=== PATIENT | male | born 1930 | race Caucasian/White ===

== ENCOUNTER 2018-11-15 10:17 | Inpatient (IN) | payer MEDICARE, OTHER ==
[2018-11-15] MEDS ORDERED: Metoprolol Tartrate 5 MG/5 ML VIAL ONE (10:43)
[2018-11-15 10:49] LABS: #Basophils 0.1 thou/uL (0.0-0.2); #Eosinphils 0.2 thou/uL (0.0-0.7); #Lymphocytes 2.3 thou/uL (1.20-3.40); #Monocytes 1.1 thou/uL (0.11-0.59); %Basophils 0.4 % (0.0-1.0); %Lymphocytes 14.5 % (21.0-51.0); %Monocytes 6.9 % (0.0-10.0); %Neutrophils 77.2 % (42.0-75.0); Mean Corpuscular HGB CONC 32.7 g/dL (32.0-36.0); Mean Corpuscular Hemoglobin 31.1 pg (27.0-31.0); Mean Corpuscular Volume 95.4 fL (78.0-98.0); Mean Platelet Volume 7.5 fL (7.4-10.4); Platelet Count 234 thou/uL (130-400); RBC Distribution Width 12.8 % (11.5-14.5); Red Blood Cell (RBC) Count 3.85 mill/uL (4.70-6.10); White Blood Cell (WBC) Count 15.5 thou/uL (4.8-10.8)
[2018-11-15 11:17] LABS: ALT (SGPT) 14 U/L (8-55); AST (SGOT) 23 U/L (5-34); Albumin 3.5 g/dL (3.4-4.8); Alkaline Phosphatase 54 U/L (40-110); Anion Gap 11 mmol/L (10-20); BUN (Urea Nitrogen) 36 mg/dL (8.4-25.7); Bilirubin, Total 0.7 mg/dL (0.2-1.2); Calc. Creatinine Clearance 0 mL/min (70-130); Calcium 9.2 mg/dL (7.8-10.44); Carbon Dioxide 24 mmol/L (23-31); Chloride 101 mmol/L (98-107); Estimated GFR-MDRD 72; Globulin 3.8 g/dL (2.4-3.5); Glucose 80 mg/dL (83-110); Potassium 4.4 mmol/L (3.5-5.1); Protein, Total 7.3 g/dL (5.8-8.1); Sodium 132 mmol/L (136-145)
--- NOTE | 2018-11-15 11:23 | CT ---
CT OF THE BRAIN WITHOUT CONTRAST: Date: 11/15/18 COMPARISON: 06/20/15. HISTORY: Fall out of wheelchair with head trauma. TECHNIQUE: Multiple contiguous axial images were obtained in a CT of the brain without contrast. FINDINGS: There are diffuse scattered hypodensities in the subcortical and periventricular white matter, likely secondary to small vessel ischemic disease. No large confluent infarction is seen. There is no evide nce of hydrocephalus, intracranial hemorrhage, or extra-axial fluid collection. The calvarium and overlying soft tissues are unremarkable. The visualized paranasal sinuses and masto id air cells are well aerated. IMPRESSION: No evidence of acute intracranial abnormality. POS: CET
--- NOTE | 2018-11-15 11:24 | RAD ---
SINGLE VIEW CHEST: Date: 11/15/18 COMPARISON: 07/29/13. HISTORY: Fell out of wheelchair with chest trauma. FINDINGS: Single view of the chest shows normal sized cardiomediastinal silhouette with atherosclerotic calcifi cations in the aorta. There is no evidence of consolidation, mass, or pleural effusion. Degenerative changes are seen in the spine. IMPRESSION: No evidence of acute cardiopulmonary disease. POS: CET
--- NOTE | 2018-11-15 11:37 | CT ---
CT OF THE CERVICAL SPINE WITHOUT CONTRAST: Date: 11/15/18 COMPARISON: None. HISTORY: Fell out of wheelchair with head trauma and neck pain. TECHNIQUE: Multiple contiguous axial images were obtained in a CT of the cervical spine without contrast. Sagitt al and coronal reformats were performed. FINDINGS: Moderate degenerative changes are seen in the cervical spine. The vertebral bodies demonstrate normal height without acute fracture or subluxation. No prevertebral soft tissue swelling is seen. The posterior facets are well aligned. Normal alignment of the skull base with the cervical spine is seen. IMPRESSION: Degenerative changes of the cervical spine without acute osseous abnormality. POS: CET
[2018-11-15 11:57] LABS: Bilirubin Negative (Negative); Blood, Urine 2+ (Negative); Clarity Extra Turbid (Clear); Glucose, Urine (Dipstick) Normal (Negative); Leukocyte 500 Leu/uL (Negative); Nitrite Negative (Negative); Protein, Urine (Dipstick) 200 mg/dL (Neg-Trace); RBC/HPF Greater than 50 HPF (0-3); Squamous Epithelial None Seen HPF (0-3); Urobilinogen Normal mg/dL (Less than 2); WBC/HPF Greater than 50 HPF (0-3)
[2018-11-15 12:11] LABS: Bacteria/HPF 4+ HPF (None Seen)
--- NOTE | 2018-11-15 12:12 | PDOC.FPRHP ---
- History of Present Illness Chief Complaint: fall out of chair History of Present Illness: Pt was brought to the ED to be evaluated from [facility]/rehab after falling out of his chair. [facility] staff states he has been at his baseline mentation and function lately, with no acute concerns. Pt does not have any complaints. Does not remember fall occurring this morning. Pt's HR in the ED was 120-130's. EKG showed A. fib with RVR. He was given 5 mg Metoprolol Tartrate IV push, and his HR is not 95-100. BP readings 100-120/60-80. WBC 15.5 UA: leuk est 500, >50 WBC, >50 RBC, bacteria 4+ BNP 514.9 Trop 0.056 - Allergies/Adverse Reactions Allergies Allergy/AdvReac Type Severity Reaction Status Date / Time iodine Allergy Verified 05/03/15 13:34 - Home Medications Medication Instructions Recorded Confirmed Type Aspirin [Aspirin EC] 81 mg PO DAILY 07/29/13 11/15/18 History BuPROPion SR [Wellbutrin SR] 300 mg PO DAILY 07/29/13 11/15/18 History Fluticasone Propionate 2 spray EA NARE QAM 07/29/13 11/15/18 History [Fluticasone Propionate Nasal [place]] Multivitamin/Iron/Folic Acid 1 tab PO DAILY 07/29/13 11/15/18 History [Cerovite Advanced Form] Tamsulosin HCl [Flomax] 0.4 mg PO HS 07/29/13 11/15/18 History Loratadine [Claritin] 10 mg PO DAILY 05/03/15 11/15/18 History Potassium Chloride 7.5 ml PO DAILY 05/03/15 11/15/18 History Acetaminophen [Tylenol] 650 mg PO Q6H PRN 11/15/18 11/15/18 History Docusate [Colace] 100 mg PO HS 11/15/18 11/15/18 History Furosemide 20 mg PO DAILY 11/15/18 11/15/18 History Guaifenesin DM 100-10 [Robitussin 10 ml PO Q4H PRN 11/15/18 11/15/18 History DM] Losartan Potassium [Cozaar] 25 mg PO HS 11/15/18 11/15/18 History Megestrol Acetate 10 ml PO BID 11/15/18 11/15/18 History Naproxen Sodium [Aleve] 440 mg PO Q12HR PRN 11/15/18 11/15/18 History Sertraline HCl 25 mg PO DAILY 11/15/18 11/15/18 History Sodium Chloride 1 gm PO DAILY 11/15/18 11/15/18 History guaiFENesin [Guaifenesin] 400 mg PO Q12HR 11/15/18 11/15/18 History - History PMHx: HTN, HLD, DM II, Hx of falls, Chronic dementia, squamous cell carcinoma, generalized weakness with muscle atrophy, BPH, Insomnia, sacral pressure ulcer, 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 Social: Lives a [facility]. Only eats chocolate milk and ensure. - Review of Systems ROS unobtainable: due to mental status (Pt does not admit to any pain, problem or remember his fall this morning.) - Vital signs BP: 127/85 HR: 96 RR: 17 Tmax: 98.8 Pox: 98% on RA Wt: 83.37 kg - Physical Exam Constitutional: NAD, well developed -Constitutional: awake, oriented to person. At baseline mentation per [facility] staff. HEENT: PERRLA, EOMI, conjunctiva clear, no scleral icterus, grossly normal vision, MMM -HEENT: poor dentition Neck: supple, FROM, trachea midline, no LAD, no JVD Heart: pulses present, no edema -Heart: irregularly irregular rhythm, rate 96. 3/6 Holosystolic murmur auscultated loudest over the mitral valve. Lungs: no respiratory distress, no wheezing, no retractions -Lungs: Rhonchi present Bibasilar Crackles/rales Abdomen: soft, bowel sounds present, no masses/distention -Abdomen: RUQ abdominal tenderness. No guarding or rebound. Musculoskeletal: normal structure, normal tone Neurological: no focal deficit, CN II-XII intact, normal sensation Skin: no rash/lesions, good turgor, capillary refill <2 seconds, no jaundice Heme/Lymphatic: no unusual bruising or bleeding, no purpura, no petechia FMR H&P: Results - Labs Result Diagrams: 11/15/18 10:37 11/15/18 10:37 Lab results: WBC 15.5 thou/uL (4.8-10.8) H 11/15/18 10:37 Hgb 12.0 g/dL (14.0-18.0) L 11/15/18 10:37 Hct 36.7 % (42.0-52.0) L 11/15/18 10:37 MCV 95.4 fL (78.0-98.0) 11/15/18 10:37 Plt Count 234 thou/uL (130-400) 11/15/18 10:37 Neutrophils % 77.2 % (42.0-75.0) H 11/15/18 10:37 Sodium 132 mmol/L (136-145) L 11/15/18 10:37 Potassium 4.4 mmol/L (3.5-5.1) 11/15/18 10:37 Chloride 101 mmol/L (98-107) 11/15/18 10:37 Carbon Dioxide 24 mmol/L (23-31) 11/15/18 10:37 BUN 36 mg/dL (8.4-25.7) H 11/15/18 10:37 Creatinine 0.98 mg/dL (0.7-1.3) 11/15/18 10:37 Glucose 80 mg/dL (83-110) L 11/15/18 10:37 Calcium 9.2 mg/dL (7.8-10.44) 11/15/18 10:37 Total Bilirubin 0.7 mg/dL (0.2-1.2) 11/15/18 10:37 AST 23 U/L (5-34) 11/15/18 10:37 ALT 14 U/L (8-55) 11/15/18 10:37 Alkaline Phosphatase 54 U/L (40-110) 11/15/18 10:37 CK-MB (CK-2) 5.0 ng/mL (0-6.6) 11/15/18 10:37 B-Natriuretic Peptide 514.9 pg/mL (0-100) H 11/15/18 10:37 Serum Total Protein 7.3 g/dL (5.8-8.1) 11/15/18 10:37 Albumin 3.5 g/dL (3.4-4.8) 11/15/18 10:37 Urine Ketones Negative mg/dL (Negative) 11/15/18 11:26 Urine Blood 2+ (Negative) A 11/15/18 11:26 Urine Nitrite Negative (Negative) 11/15/18 11:26 Ur Leukocyte Esterase 500 Kenny/uL (Negative) A 11/15/18 11:26 Urine RBC Greater than 50 HPF (0-3) A 11/15/18 11:26 Urine WBC Greater than 50 HPF (0-3) A 11/15/18 11:26 Ur Squamous Epith Cells None Seen HPF (0-3) 11/15/18 11:26 Urine Bacteria 4+ HPF (None Seen) A 11/15/18 11:26 - EKG Interpretation EKG: A fib with RVR. FMR H&P: A/P - Problem List (1) Atrial fibrillation with RVR Current Visit: Yes Status: Acute Code(s): I48.91 - UNSPECIFIED ATRIAL FIBRILLATION (2) UTI (urinary tract infection) Current Visit: Yes Status: Acute (3) CAD (coronary artery disease) Current Visit: Yes Status: Acute Code(s): I25.10 - ATHSCL HEART DISEASE OF [place] CORONARY ARTERY W/O ANG PCTRS (4) HTN (hypertension) Current Visit: Yes Status: Acute Code(s): I10 - ESSENTIAL (PRIMARY) HYPERTENSION Qualifiers: Hypertension type: essential hypertension Qualified Code(s): I10 - Essential (primary) hypertension (5) HLD (hyperlipidemia) Current Visit: Yes Status: Acute Code(s): E78.5 - HYPERLIPIDEMIA, UNSPECIFIED (6) BPH (benign prostatic hyperplasia) Current Visit: Yes Status: Acute Code(s): N40.0 - BENIGN PROSTATIC HYPERPLASIA WITHOUT LOWER URINRY TRACT SYMP (7) History of CVA (cerebrovascular accident) Current Visit: Yes Status: Acute Code(s): Z86.73 - PRSNL HX OF TIA (TIA), AND CEREB INFRC W/O RESID DEFICITS - Plan 88 y/o male with a pmhx of CAD, squamous cell carcinoma, HTN, HLD, Dementia, and CVA, presents to the ED after falling out of his wheelchair this morning. He was found to be in new onset A. fib with RVR. UA suggestive of UTI. 1. New Onset A. fib with RVR - Called [facility]/rehab in [place], [place], where pt is resident. They reported the patient has never been diagnosed with A. fib before. - HR originally 120's. Pt given lopressor in the ED. HR responded and not in 95 - 100 range. - EKG: A fib with RVR, rate 122. no ST elevations or depression. - Trops 0.056-> 0.052, will trend - BNP 514.9 - Ordered Echo. - KRISTIN-VASCs score: 7 - HAS-BLED Score: 3 - Pt on ASA 81 mg daily, consider anticoagulation upon discharge. - Started Metoprolol Tartrate at 25 mg BID, consider switching to succinate if pt tolerates well. - TSH 0.7 - Mag and Phos normal 2. UTI - UA evidence of UTI: Turbid, Blood 2+, 500 leuk est, RBC >50, WBC >50, Bact 4+ - Procal: 0.04 - Start Rocephin 1 G Q24H 3. RUQ abdominal Tenderness on Exam - RUQ abd US ordered - WBC 15.5 4. Leukocytosis - WBC 15.5 - Ordered Procal 5. Fall from chair - CT head and CT c-spine negative 6. Elevated BNP - Ordered Echo. Patient may be in volume overload from suspected CHF. - Elevated Trops most likely secondary to a fib with demand ischemia. - CXR: no acute cardiopulmonray process. - Gave 1 dose Lasix 20 mg IV. Monitor fluid status - Continue home lasix dose 20 mg PO daily. 7. Elevated Troponins - Most likely elevated 2/2 A. Fib from demand ischemia - Will trend 8. Fall from Chair - scalp abrasions - CT head neg - CT c-spine neg 9. Hx of Dementia - Pt at baseline mentation of oriented to person and place. Knew he was in the hospital, but not which one. - PT only eats chocolate milk and ensure. 10. Hx of CAD - continue ASA 11. Hx of Essential HTN - hold losartan, as pt has been hypotensive 12. Hx of BPH - Continue tamsulosin 13. Hx of MDD - Continue buproprion, and zoloft 14. DM II - not on any medications, diet controlled. Code Status: DNR, confirmed with [facility] Diet: HH, CC DVT ppx: lovenox and SCD's Dispo: admit to Tele inpatient for evaluation and treatment of new onset A fib with RVR, and UTI. FMR H&P: Upper Level - Pertinent history 88 y/o M PMHx dementia, HTN, HLD, CVA, CAD presents from [facility] because he fell out of his chair. In the ED he was found to have A-fib with RVR with rate in 130s. This resolved after 5mg metoprolol and 500mL NS. He reports he has been urinating more frequently. AOx1, so unable to obtain much more history. - Pertinent findings Vitals: BP 115/73, HR 97, RR 18, Temp 98.7, O2 sat 100% on RA PE: Gen - alert, awake, oriented to person only HEENT - MMM, poor dentition CV - irregularly irregular, 3/6 systolic murmur Resp - Poor effort, but CTAB Abd - soft, NTTP Ext - no edema or cyanosis Labs: Torp 0.056, WBC 15.5 CXR - no acute process, CT brain - no acute process, CT neck - no acute process - Plan Date/Time: 11/15/18 1212 I, Katerina Aldana MD, PGY-3, have evaluated this patient and agree with findings/ plan as outlined by recruiting internship resident. Pertinent changes/additions are listed here. 1. A-fib with RVR New onset A-fib. Initial trop indeterminate. Responded to 5mg metoprolol. CHADS- vasc 7, HAS-BLED 3 -Admit to telemetry -Metoprolol -Trend troponins -Echo -TSH, Mag, Phos -Will discuss anticoagulation risks and benefits with medical decision maker 2. Acute Cystitis Pt with leukocytosis and UA consistent with UTI -Rocephin -Urine culture 3. Leukocytosis Could be attributed to cystitis, but pt also mentioned RUQ pain to Dr. Hoskins -RUQ US -Trend -Procalcitonin -Blood culture -Rocephin, broaden if becomes indicated 4. Fall CT head and neck normal -Fall precautions Chronic problems per recruiting internship note Dispo: Admit to tele LOS: likely 2 days Diet: consult speech, ensure TID Addendum - Attending - Attending Attestation Date/Time: 11/15/18 1600 I personally evaluated the patient and discussed the management with Dr. Hoskins. I agree with the History, Examination, Assessment and Plan documented above with any addition or exceptions noted below. Abdomen only mildly tender in the epigastric region and RUQ. No rebound tenderness or guarding to suggest peritonitis. Lung bases with inspiratory rales. Will add a dose of lasix. Consistent with heart failure picture. Has known swallow issues. has had two prior swallow studies that recommend thickened liquid. Diet to be modified.
[2018-11-15 14:10] VITALS: BMI 27.9
[2018-11-15 14:13] LABS: Troponin I 0.052 ng/mL (< 0.028)
[2018-11-15 14:25] LABS: Phosphorus 3.3 mg/dL (2.3-4.7)
[2018-11-15] MEDS ORDERED: Naproxen 500 MG TAB PO PRN (15:18)
[2018-11-15] MEDS ORDERED: Acetaminophen 325 MG TAB PO PRN (15:18)
[2018-11-15] MEDS ORDERED: guaiFENesin 200 MG TAB PO PRN (15:18)
--- NOTE | 2018-11-15 15:27 | ULT ---
Abdominal Ultrasound: Multiple grayscale images of right upper quadrant obtained according to protocol. INDICATION: Pain FINDINGS: Liver: Normal Gallbladder: There is cholelithiasis, and gallbladder sludge Gallbladder wall: Gallbladder wall is borderline at 3 mm in thickness.. Mena's Sign: Negative Common bile duct is normal. Ascites: None Spleen: Obscured from view limiting assessment Pancreas: Partially obscured by bowel content, limiting assessment. Kidneys: Left kidney is obscured from view limiting assessment. Right kidney reveals no hydronephrosi s. Aorta/IVC: No acute process. IMPRESSION: Cholelithiasis and gallbladder sludge. Borderline-sized gallbladder wall. Recommend clinical correlat ion to exclude evidence of cholecystitis.
[2018-11-15] MEDS ORDERED: Lactated Ringer's 1,000 ML IV SCH (16:00)
[2018-11-15] MEDS: cefTRIAXone\\ROCEPHIN 1 GM in Sodium Chloride 0.9% 100 ML IVPB SCH (16:45)
[2018-11-15] MEDS: Furosemide 20 MG/2 ML VIAL SLOW IVP SCH ×2 (16:45→19:32)
[2018-11-15 16:53] LABS: Hemoglobin A1c 5.1 % (4.0-6.0)
[2018-11-15 17:10] LABS: Troponin I 0.064 ng/mL (< 0.028)
[2018-11-15] MEDS: Metoprolol Tartrate 25 MG TAB PO SCH (21:10)
[2018-11-15] MEDS: Tamsulosin HCl 0.4 MG CAP PO SCH (21:10)
[2018-11-15] MEDS: Bupropion 150 MG SR TAB PO SCH (21:10)
[2018-11-15] MEDS: Megestrol Acetate 800 MG/20 ML UDCUP PO SCH (21:11)
[2018-11-15] MEDS: Docusate 100 MG CAP PO SCH (21:11)
[2018-11-16] MEDS ORDERED: Metoprolol Tartrate 5 MG/5 ML VIAL IVP SCH (01:30)
[2018-11-16] MEDS ORDERED: Furosemide 40 MG/4 ML VIAL SLOW IVP SCH (04:15)
--- NOTE | 2018-11-16 04:25 | PDOC.EVN ---
Event Note - Event Note Event Note: Called to bedside due to low BP. Pressures have been 80-90s systolic for the past few hours. Nursing also notes a progressive increase in respiratory effort. BP 86/40 RR 24 HR 140s General A&O x1, moderate respiratory distress CV irregularly irregular and tachy, 1+ pitting in dependant portions of LE to knee Resp crackles in bases Abd non tender Repeat CXR shows interval obscuring of L diaphragm and cardiac boarder with worsening pulmonary vascular congestion Will give 40 Lasix IV and dc IVF. Monitor I/O and BP.
--- NOTE | 2018-11-16 06:13 | PDOC.FM ---
- Subjective Subjective: Patient was not seen prior to Code Green. - Objective Vital Signs & Weight: Vital Signs (12 hours) Temp Pulse Resp BP Pulse Ox 11/16/18 04:00 100 11/16/18 03:05 100.4 F H 28 L 128 H 95/58 L 100 11/15/18 23:40 115 H 133/96 H 11/15/18 19:30 96 121/79 11/15/18 19:12 98.4 F 95 16 95/65 100 Weight Weight 83.37 kg I&O: 11/14/18 11/15/18 11/16/18 06:59 06:59 06:59 Intake Total 240 Balance 240 Result Diagrams: 11/16/18 08:03 11/16/18 08:03 Phys Exam - Physical Examination Constitutional: NAD HEENT: oral pharynx no lesions Neck: supple, full ROM A-Fib w/ RVR Musculoskeletal: no edema, pulses present Neurological: non-focal, moves all 4 limbs Deviation from normal: A&O x 2 Skin: no rash, normal turgor Dx/Plan - Plan Plan: 1. New-Onset A-Fib with RVR -Trops: 0.056 > 0.052 (Indeterminate) -CHADS-VASC: 7 / HAS-BLED: 3 -Echo: Pending -Responded to 5mg Metoprolol -Reponded well to Furosemide 40 mg IV -BNP: 515 -TSH: 0.7 -M -Phos: 3.3 -Will weigh risks and benefits of anticoagulation -Consider Cardiology consult following Echo results 2. Acute Cystitis -Leukocytosis and UA consistent with UTI -Urine Culture: Pending -Ceftriaxone 1 gm Q24H 3. Leukocytosis -Could be attributed to cystitis, but cannot rule out other causes -CXR: Worsening Vascular Congestion -RUQ US: Possible Cholelithiasis w/ Gallbladder Sludge -Procal: Pending -Blood Culture: Pending -Urine Culture: Pending -Patient currently on Ceftriaxone, consider additional antibiotics if necessary 4. Fall -CT Head / Neck: NAF -Fall precautions Diet: Speech Therapy consulted. Await Echo results and cultures. Continue to control A-Fib w/ RVR with Rate Control until etiology of A-Fib and leukocytosis can be determined. LOS > 48H Addendum - Attending - Attending Attestation Date/Time: 11/16/18 5492 I personally evaluated the patient and discussed the management with Dr. Hermosillo. I agree with the History, Examination, Assessment and Plan documented above with any addition or exceptions noted below. At approximately 6:30 this a.m. a code green was called for hypotension. Pt's blood pressure was 60's/30's. He was in a fib with RVR with rate in the 140-160 's range. Overnight the patient was noted to be getting fluid overloaded and iv fluids were stopped. Lasix was given without much change in bp or heart rate per team. He also received 5 mg of metoprolol to try to control heart rate around 4 a.m. Pt was given a 500 ml bolus of fluids during the code green and he was transferred to the ICU where he was started on levophed. A central line was placed and pt was then started on amiodarone as his pressure was unable to tolerate rate control until the levophed was started. Consulting critical care and cardiology. Repeating a cxr, assessing volume status. Continue antibiotics for UTI. Recheck procal. Culture is pending. Pt is also noted to have hematuria and has a reported history of traumatic canela removal and subsequent replacement. Will monitor.
[2018-11-16] MEDS ORDERED: Amiodarone 150 MG in Dextrose 5% in Water 100 ML IVPB SCH (08:00)
[2018-11-16 08:37] LABS: ALT (SGPT) 14 U/L (8-55); AST (SGOT) 25 U/L (5-34); Albumin 3.2 g/dL (3.4-4.8); Alkaline Phosphatase 49 U/L (40-110); Anion Gap 13 mmol/L (10-20); BUN (Urea Nitrogen) 42 mg/dL (8.4-25.7); Bilirubin, Total 0.8 mg/dL (0.2-1.2); Calc. Creatinine Clearance 38 mL/min (70-130); Calcium 8.6 mg/dL (7.8-10.44); Carbon Dioxide 22 mmol/L (23-31); Chloride 103 mmol/L (98-107); Estimated GFR-MDRD 42; Globulin 3.2 g/dL (2.4-3.5); Glucose 99 mg/dL (83-110); Potassium 4.1 mmol/L (3.5-5.1); Protein, Total 6.4 g/dL (5.8-8.1); Sodium 134 mmol/L (136-145)
[2018-11-16] MEDS: Amiodarone 450 MG in Dextrose 5% in Water 250 ML IVPB SCH ×2 (08:37→16:53)
--- NOTE | 2018-11-16 08:38 | PDOC.EVN ---
Event Note - Event Note Event Note: INDICATION: Need for centrally acting medications PROCEDURE CIVIL ENGINEERING PROJECT MANAGER: Dr. Mimi Galindo, Dr. Alexander Moreno ATTENDING PHYSICIAN: Dr. Lebron Jimenez Ultrasound Used: Y CONSENT: Consent was assumed due to mental status. PROCEDURE SUMMARY: My hands were washed immediately prior to the procedure. I wore a surgical cap, mask with protective eyewear, sterile gown and sterile gloves throughout the procedure. The LEFT inguinal region was prepped using chlorhexidine scrub and draped in sterile fashion using a full drape and sterile probe cover employed. The femoral pulse was identified. Anesthesia was achieved using 1% lidocaine. Using ultrasound guidance throughout the procedure, the introducer needle was inserted medial to the femoral artery, inferior to the inguinal crease and into the femoral vein. Venous blood was withdrawn. The syringe was removed and a guidewire was advanced into the introducer needle. A small incision was made at the skin surface with a scalpel and the introducer needle was exchanged for a dilator over the guidewire. After appropriate dilation was obtained, the dilator was exchanged over the wire for a triple-lumen central venous catheter. The wire was removed and the catheter was sutured in place. A sterile dressing was placed over the catheter at the insertion site. The patient tolerated the procedure without any hemodynamic compromise. At time of procedure completion, all ports aspirated and flushed properly. Estimated blood loss is minimal.
[2018-11-16 08:57] LABS: Hemoglobin 11.8 g/dL (14.0-18.0); Mean Corpuscular HGB CONC 33.3 g/dL (32.0-36.0); Mean Corpuscular Hemoglobin 31.2 pg (27.0-31.0); Mean Corpuscular Volume 93.7 fL (78.0-98.0); Mean Platelet Volume 8.4 fL (7.4-10.4); Platelet Count 216 thou/uL (130-400); Red Blood Cell (RBC) Count 3.78 mill/uL (4.70-6.10)
[2018-11-16] MEDS ORDERED: Albumin 25% 25 GM/100 ML BOT IVPB SCH (09:23)
[2018-11-16] MEDS ORDERED: Sodium Chloride 0.9% 1,000 ML IV SCH (09:30)
[2018-11-16] MEDS: Enoxaparin Sodium 40 MG/0.4 ML SYRINGE SC SCH (10:11)
[2018-11-16] MEDS: Metoprolol Tartrate 25 MG TAB PO SCH ×2 (10:12→20:03)
[2018-11-16] MEDS: Multivit, Therapeutic 1 TAB PO SCH (10:12)
[2018-11-16] MEDS: Aspirin 81 mg Enteric Coated Tablet PO SCH (10:12)
[2018-11-16] MEDS: Potassium Chloride 10 MEQ TAB PO SCH (10:13)
[2018-11-16] MEDS: Loratadine 10 MG TAB PO SCH (10:13)
[2018-11-16 10:26] LABS: Band 7 % (5-11); Giant Platelets SLIGHT; Large Platelets SLIGHT; Lymphocytes 5 % (21-51); MDiff Complete? YES; Monocytes 9 % (0-10); Neutrophil 78 % (42-75); Platelet Morphology Comment Appears Adequate; Polychromasia SLIGHT = 2-3 cells (100X) (0-2/hpf); Reactive Lymphocytes 1 % (0-10)
--- NOTE | 2018-11-16 11:26 | RAD ---
PORTABLE AP CHEST XRAY: HISTORY: Shortness of breath and fluid overload. COMPARISON: 11/15/2018. FINDINGS: There are increased linear and patchy densities at the left lung base probably related to increasing atelectasis. However, developing pneumonitis/pneumonia is a possibility. There is mild elevation of the left hemidiaphragm. There is a suggestion of a tiny left pleural effusion. The right lung is c lear. Cardiac silhouette is stable in size. The pulmonary vasculature is within normal limits. Vas cular calcifications are seen in the ectatic thoracic aorta. There is prominence of the right hilar region, but this is probably projectional. Prominent left glenohumeral osteoarthropathy is present. IMPRESSION: 1. Increasing patchy density left lung base which could be related to increase in atelectasis, but d eveloping pneumonia is a possibility. Followup to resolution is recommended. 2. Prominence of right hilum which may be projectional. However, this can be reevaluated on follow up exam. A followup PA and lateral chest x-ray is suggested. POS: OFF
[2018-11-16] MEDS: Fluticasone Propionate Nasal Spray 16 gm Bottle NASAL SCH (11:27)
[2018-11-16] MEDS: Sodium Chloride 1 GM TAB PO SCH (11:28)
[2018-11-16] MEDS: Bupropion 150 MG SR TAB PO SCH ×2 (11:28→20:03)
[2018-11-16] MEDS: Megestrol Acetate 800 MG/20 ML UDCUP PO SCH (11:36)
[2018-11-16] MEDS ORDERED: Norepinephrine 8 MG/0.9% NS 250 ML IVPB SCH (12:00)
[2018-11-16] MEDS: Norepinephrine 8 MG in Dextrose 5% in Water 242 ML IVPB PRN ×2 (12:20→23:55)
[2018-11-16] MEDS: Vancomycin HCl 1.25 GM in Sodium Chloride 0.9% 250 ML 250 ML IVPB SCH (14:15)
--- NOTE | 2018-11-16 14:48 | RAD ---
EXAM: CHEST ONE VIEW HISTORY: Possible fluid overload. COMPARISON: 11/16/2018 at 0336 hours. FINDINGS: Cardiac silhouette is magnified by projection. Pulmonary vasculature appears to be within normal limi ts. The linear and patchy densities at the left lung base have improved likely due to improving atelectasis. Minimal atelectasis is also present at the right lung base. No consolidation or pleural fluid is appreciated. Vascular calcifications are again seen in an ectatic thoracic aorta. Osteopenia is present. IMPRESSION: 1. Improvement in vertical density at the left lung base likely related to improvement in atelectasis . Minimal bibasilar atelectasis is present on the current study.
[2018-11-16] MEDS: cefTRIAXone\\ROCEPHIN 1 GM in Sodium Chloride 0.9% 100 ML IVPB SCH (15:45)
[2018-11-16] MEDS: Docusate 100 MG CAP PO SCH (20:05)
[2018-11-16] MEDS: Tamsulosin HCl 0.4 MG CAP PO SCH (20:05)
--- NOTE | 2018-11-17 05:37 | PDOC.FM ---
- Subjective Subjective: NAEO. Rate controlled 0.5mg/min, levophed just turned off. Patient A&O x1. - Objective MAR Reviewed: Yes Vital Signs & Weight: Vital Signs (12 hours) Temp Pulse Ox 11/17/18 00:00 98.2 F 11/16/18 20:00 98.4 F 100 Weight Admit Weight 83.37 kg Weight 83.37 kg Most Recent Monitor Data Heart Rate from ECG 98 NIBP 116/78 NIBP BP-Mean 90 Respiration from ECG 23 SpO2 100 I&O: 11/15/18 11/16/18 11/17/18 06:59 06:59 06:59 Intake Total 600 2032 Output Total 1600 1860 Balance -1000 172 Result Diagrams: 11/17/18 Unknown 11/17/18 Unknown Phys Exam - Physical Examination Constitutional: NAD HEENT: PERRLA, sclera anicteric upper airway congestion Neck: full ROM Respiratory: no wheezing, clear to auscultation bilateral irregular rhhythm, systolic murmru 2/6 Gastrointestinal: soft, non-tender Musculoskeletal: no edema Neurological: non-focal Deviation from normal: a&o x1 Deviation from normal: canela in place, yellow/red tinted urine Dx/Plan (1) Shock Code(s): R57.9 - SHOCK, UNSPECIFIED Status: Acute (2) Atrial fibrillation with RVR Code(s): I48.91 - UNSPECIFIED ATRIAL FIBRILLATION Status: Acute (3) CAD (coronary artery disease) Code(s): I25.10 - ATHSCL HEART DISEASE OF [place] CORONARY ARTERY W/O ANG PCTRS Status: Acute (4) HLD (hyperlipidemia) Code(s): E78.5 - HYPERLIPIDEMIA, UNSPECIFIED Status: Acute (5) HTN (hypertension) Code(s): I10 - ESSENTIAL (PRIMARY) HYPERTENSION Status: Acute Qualifiers: Hypertension type: essential hypertension Qualified Code(s): I10 - Essential (primary) hypertension (6) History of CVA (cerebrovascular accident) Code(s): Z86.73 - PRSNL HX OF TIA (TIA), AND CEREB INFRC W/O RESID DEFICITS Status: Acute (7) UTI (urinary tract infection) Status: Acute (8) Hematuria Code(s): R31.9 - HEMATURIA, UNSPECIFIED Status: Acute - Plan Plan: #New-Onset A-Fib with RVR Rate controlled with range 80-100 -Amio gtt, metoprolol 25 mg BID, lovenox -CHADSVASC score: 4 -BNP: 515 -Cardiology on board #Cardiogenic vs. Septic shock -Afib moderately controlled, on levophed gtt for BP support, maintaining MAPs > 65 -Elevated procal, white count-CXR neg, Proteus sensitive to rocephin. No obvious infectious source. Will broaden abx spectrum with vanc until Bcx finalize. -RUQ U/S with GB sludge, borderline sized GB wall. In absence of abd pain unlikely. But if patient clinically deteriorates consider addition of zosyn to cover anaerobes. Not likely great surgical candidate. #Proteus UTI -rocephin, continue #GAYE on CKD -s/p 1L bolus -likely from hypotensive period, prerenal -trend with AM labs #Hematuria -good UO, thalialey from canela trauma, clearing up Dispo: Continue with plan above. Prognosis guarded. Palliative care meeting today to discuss goals of care. Wean levophed to see how BP tolerates. Pending cards recs. Addendum - Attending - Attending Attestation Date/Time: 11/17/18 3585 I personally evaluated the patient and discussed the management with Dr. Burnett. I agree with the History, Examination, Assessment and Plan documented above with any addition or exceptions noted below. The patient's A fib c RVR is controlled. His rate is in the 80's which is improved from 160's yesterday. Titrating off levophed. Transition to oral control. Cardiology consult is still pending. Continue antibiotics, awaiting final cultures. Can likely transition to telemetry later today.
[2018-11-17] MEDS ORDERED: Albumin 25% 25 GM/100 ML BOT IVPB SCH (06:55)
[2018-11-17 07:16] LABS: #Eosinphils 0.1 thou/uL (0.0-0.7); #Lymphocytes 1.2 thou/uL (1.20-3.40); #Monocytes 1.2 thou/uL (0.11-0.59); #Neutrophils 16.2 thou/uL (1.40-6.50); %Basophils 0.1 % (0.0-1.0); %Eosinophils 0.3 % (0.0-10.0); %Lymphocytes 6.5 % (21.0-51.0); %Monocytes 6.4 % (0.0-10.0); %Neutrophils 86.7 % (42.0-75.0); Hemoglobin 10.2 g/dL (14.0-18.0); Mean Corpuscular HGB CONC 34.4 g/dL (32.0-36.0); Mean Corpuscular Hemoglobin 32.2 pg (27.0-31.0); Mean Corpuscular Volume 93.6 fL (78.0-98.0); Mean Platelet Volume 7.5 fL (7.4-10.4); Platelet Count 188 thou/uL (130-400); RBC Distribution Width 12.6 % (11.5-14.5); Red Blood Cell (RBC) Count 3.17 mill/uL (4.70-6.10); White Blood Cell (WBC) Count 18.6 thou/uL (4.8-10.8)
[2018-11-17 07:33] LABS: ALT (SGPT) 13 U/L (8-55); AST (SGOT) 20 U/L (5-34); Alkaline Phosphatase 43 U/L (40-110); Anion Gap 11 mmol/L (10-20); BUN (Urea Nitrogen) 32 mg/dL (8.4-25.7); Bilirubin, Total 0.7 mg/dL (0.2-1.2); Calc. Creatinine Clearance 55 mL/min (70-130); Calcium 8.6 mg/dL (7.8-10.44); Carbon Dioxide 23 mmol/L (23-31); Chloride 104 mmol/L (98-107); Estimated GFR-MDRD 65; Globulin 3.1 g/dL (2.4-3.5); Glucose 111 mg/dL (83-110); Potassium 3.3 mmol/L (3.5-5.1); Protein, Total 6.1 g/dL (5.8-8.1); Sodium 135 mmol/L (136-145)
[2018-11-17] MEDS ORDERED: Potassium Chloride 40 MEQ in Premix Bag 1 BAG IVPB SCH (08:30)
[2018-11-17] MEDS ORDERED: Furosemide 20 MG TAB PO SCH (09:00)
[2018-11-17] MEDS: Aspirin 81 mg Enteric Coated Tablet PO SCH (09:09)
[2018-11-17] MEDS: Metoprolol Tartrate 25 MG TAB PO SCH (09:09)
[2018-11-17] MEDS: Sodium Chloride 1 GM TAB PO SCH (09:09)
[2018-11-17] MEDS: Multivit, Therapeutic 1 TAB PO SCH (09:09)
[2018-11-17] MEDS: Enoxaparin Sodium 40 MG/0.4 ML SYRINGE SC SCH (09:09)
[2018-11-17] MEDS: Potassium Chloride 10 MEQ TAB PO SCH (09:09)
[2018-11-17] MEDS: Loratadine 10 MG TAB PO SCH (09:09)
[2018-11-17] MEDS: Fluticasone Propionate Nasal Spray 16 gm Bottle NASAL SCH (09:10)
[2018-11-17] MEDS: Bupropion 150 MG SR TAB PO SCH ×2 (09:29→20:06)
[2018-11-17] MEDS ORDERED: Amiodarone 200 MG TAB PO SCH ×2 (10:25→15:00)
[2018-11-17] MEDS ORDERED: Digoxin 0.5 MG/2 ML AMP SLOW IVP SCH (12:15)
--- NOTE | 2018-11-17 12:48 | CON ---
DATE OF CONSULTATION: REASON FOR CONSULTATION: Atrial fibrillation. HISTORY OF PRESENT ILLNESS: Mr. Al is an 88-year-old gentleman with history of dementia, who recently presented with weakness, fatigue, and falls. He was diagnosed with UTI. He has battled with hypotension. He was found to be in AFib with RVR, which is a new finding. During my visit, his AFib appears to be well controlled. He was placed on IV amiodarone. No previous history of underlying coronary artery disease, atrial fibrillation. PAST MEDICAL HISTORY: Dementia, hypertension, hyperlipidemia, diabetes mellitus, squamous cell carcinoma, sacral decubitus ulcer, previous CVA, chronic rhinitis. SOCIAL HISTORY: Currently, lives in [facility]. No current tobacco or alcohol use. HOME MEDICATIONS: Include, 1. Aspirin. 2. Bupropion. 3. Flonase. 4. Multivitamin. 5. Tamsulosin. 6. Loratadine. 7. Potassium. 8. Acetaminophen. 9. Docusate. 10. Lasix. 11. Guaifenesin. 12. Losartan. 13. . 14. Naproxen. 15. Sertraline. REVIEW OF SYSTEMS: Ten-point review of systems difficulty to obtain. He currently has underlying dementia. PHYSICAL EXAMINATION: GENERAL: Patient is a pleasant male, who is in no acute distress. The patient appears their stated age. VITAL SIGNS: Blood pressure 94/52, pulse 74, temperature afebrile. He is currently on low-dose norepinephrine for blood pressure control. NEUROLOGIC: Not oriented to time, person, or place. HEENT: Sclerae without icterus. Mouth has moist mucous membranes with normal pallor. NECK: No JVD. Carotid upstroke brisk. No bruits bilaterally. LUNGS: Clear to auscultation with unlabored respirations. BACK: No scoliosis or kyphosis. CARDIAC: Irregularly irregular rate and rhythm with normal S1 and S2. No S3 or S4 noted. No significant rubs, murmurs, thrills, or gallops noted throughout the precordium. PMI is not displaced. There is no parasternal heave. ABDOMEN: Soft, nontender, nondistended. No peritoneal signs present. No hepatosplenomegaly. No abnormal striae. EXTREMITIES: 2+ femoral and 2+ dorsalis pedis pulses. No cyanosis, clubbing, or edema. SKIN: No gross abnormalities. PERTINENT LABORATORY DATA: Sodium 135, potassium 3.3, chloride 104, CO2 of 23, creatinine 1.07. Hemoglobin 10.2, hematocrit 29.7, white blood cell count 18.6. IMPRESSION: 1. New onset atrial fibrillation. 2. Urinary tract infection, ?sepsis. 3. Underlying dementia. RECOMMENDATIONS: I had a long discussion with the family on how to proceed. I would not use amiodarone therapy given the chance of conversion. I would prefer Mr. Al converts on his own. At this point, I would recommend low-dose calcium channel blockade p.o. He is currently rate controlled. Also, add digoxin IV x1. Also, discussed anticoagulation therapy. He certainly has increased risk of CVA, but also risk of falls. They would like to think about their option before proceeding. His underlying atrial fibrillation maybe isolated and maybe related to his current infection or maybe a chronic issue. Job ID: [id number]
[2018-11-17] MEDS: Vancomycin HCl 1.25 GM in Sodium Chloride 0.9% 250 ML 250 ML IVPB SCH (14:00)
[2018-11-17] MEDS: cefTRIAXone\\ROCEPHIN 1 GM in Sodium Chloride 0.9% 100 ML IVPB SCH (15:30)
--- NOTE | 2018-11-17 19:04 | PRG ---
DATE OF SERVICE: 11/17/2018 SUBJECTIVE: Elaine Al awake and answer questions. He is not oriented to place or time. He is oriented to person. OBJECTIVE: VITAL SIGNS: Heart rate is 100, blood pressure 101/71, respiratory rate is in the teens to low 20s. LUNGS: Clear. HEART: Regular rhythm. ABDOMEN: Soft. LABORATORY DATA: White count 18.6, hemoglobin 10.2, and platelets 188. Sodium 135, potassium 3.3, chloride 104, bicarb 23, BUN 32, creatinine 1.07, still is on a low dose of Levophed. Albumin was again given this morning. IMPRESSION: 1. Rapid atrial fibrillation. 2. Advanced dementia. 3. Do not resuscitate status. 4. His atrial fibrillation rate is better controlled. 5. Probably, he had some intravascular volume depletion given his dementia and [facility] residence. His Proteus isolated from his urine. Antibiotic should be adjusted based on sensitivities. Blood cultures are negative. 6. He could transfer out of the Critical Care Unit in my opinion once he is off pressors. Job ID: [id number]
[2018-11-17] MEDS: Docusate 100 MG CAP PO SCH (20:04)
[2018-11-17] MEDS: Tamsulosin HCl 0.4 MG CAP PO SCH (20:06)
[2018-11-18 04:39] LABS: #Eosinphils 0.1 thou/uL (0.0-0.7); #Lymphocytes 1.6 thou/uL (1.20-3.40); #Monocytes 0.9 thou/uL (0.11-0.59); #Neutrophils 9.3 thou/uL (1.40-6.50); %Basophils 0.1 % (0.0-1.0); %Eosinophils 0.9 % (0.0-10.0); %Lymphocytes 13.7 % (21.0-51.0); %Monocytes 7.4 % (0.0-10.0); %Neutrophils 77.9 % (42.0-75.0); Hemoglobin 9.5 g/dL (14.0-18.0); Mean Corpuscular HGB CONC 33.5 g/dL (32.0-36.0); Mean Corpuscular Hemoglobin 31.9 pg (27.0-31.0); Mean Corpuscular Volume 95.2 fL (78.0-98.0); Mean Platelet Volume 7.7 fL (7.4-10.4); Platelet Count 184 thou/uL (130-400); RBC Distribution Width 12.9 % (11.5-14.5); Red Blood Cell (RBC) Count 2.99 mill/uL (4.70-6.10); White Blood Cell (WBC) Count 11.9 thou/uL (4.8-10.8)
[2018-11-18 04:59] LABS: ALT (SGPT) 13 U/L (8-55); AST (SGOT) 17 U/L (5-34); Albumin 3.1 g/dL (3.4-4.8); Alkaline Phosphatase 40 U/L (40-110); Anion Gap 11 mmol/L (10-20); BUN (Urea Nitrogen) 25 mg/dL (8.4-25.7); Bilirubin, Total 0.5 mg/dL (0.2-1.2); Calc. Creatinine Clearance 66 mL/min (70-130); Calcium 8.7 mg/dL (7.8-10.44); Carbon Dioxide 23 mmol/L (23-31); Chloride 107 mmol/L (98-107); Estimated GFR-MDRD 80; Glucose 100 mg/dL (83-110); Potassium 3.6 mmol/L (3.5-5.1); Protein, Total 6.1 g/dL (5.8-8.1); Sodium 137 mmol/L (136-145)
--- NOTE | 2018-11-18 05:45 | PDOC.FM ---
- Subjective Subjective: Pt has no complaints this morning. Nursing reports that levophed was dc'd at 0600 this AM. No other acute events overnight. - Objective MAR Reviewed: Yes Vital Signs & Weight: Vital Signs (12 hours) Temp Pulse Ox 11/18/18 04:00 98.8 F 11/18/18 00:00 98.5 F 11/17/18 20:00 98.3 F 11/17/18 19:26 98 Weight Admit Weight 83.37 kg Weight 83.37 kg Most Recent Monitor Data Heart Rate from ECG 83 NIBP 105/68 NIBP BP-Mean 80 Respiration from ECG 27 SpO2 96 I&O: 11/16/18 11/17/18 11/18/18 06:59 06:59 06:59 Intake Total 600 2671 894 Output Total 1600 1960 1390 Balance -1000 420 -305 Result Diagrams: 11/18/18 04:20 11/18/18 04:20 Phys Exam - Physical Examination Constitutional: NAD HEENT: moist MMs Neck: no JVD Respiratory: no wheezing, clear to auscultation bilateral Regular rate, atrial fibrilation, 2/6 systolic murmur right of sternum Gastrointestinal: soft, non-tender, no distention, positive bowel sounds Musculoskeletal: pulses present Trace edema Neurological: non-focal, moves all 4 limbs Deviation from normal: Oriented to person only Skin: cap refill <2 seconds Dx/Plan (1) Atrial fibrillation with RVR Code(s): I48.91 - UNSPECIFIED ATRIAL FIBRILLATION Status: Acute (2) BPH (benign prostatic hyperplasia) Code(s): N40.0 - BENIGN PROSTATIC HYPERPLASIA WITHOUT LOWER URINRY TRACT SYMP Status: Acute (3) CAD (coronary artery disease) Code(s): I25.10 - ATHSCL HEART DISEASE OF [place] CORONARY ARTERY W/O ANG PCTRS Status: Acute (4) Shock Code(s): R57.9 - SHOCK, UNSPECIFIED Status: Acute - Plan Plan: This is an 88 yo male with a 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, HTN, HLD, BPH, CAD New onset Afib with RVR -Rate controlled overnight 80-110 -Continue PO diltiazem -CHADVASC score: 4, continue aspirin -On DVT prophylactic lovenox -BNP 515 (baseline below 100) -Cardiology Consulted Shock, likely cardiogenic and septic causes -Off levophed, maintaining BP overnight -Currently on rocephin (11/15) and vancomycin (11/16), will likely de-escalate with current culture results -Proteus UTI, sensitive to rocephin -WBC and procalcitonin trending down -Consider transfer to tele today Proteus UTI -Continue rocephin (11/15) GAYE on CKD 2, resolved Anemia -9.5, possibly dilutional -Would consider stool occult blood if continues to drop. -Will monitor HTN -Hold home meds depression -Continue sertraline and bupropion BPH -Continue tamsulosin Addendum - Attending - Attending Attestation Date/Time: 11/18/18 1113 I personally evaluated the patient and discussed the management with Dr. Chávez I agree with the History, Examination, Assessment and Plan documented above with any addition or exceptions noted below - Patient denies any complaints. Afebrile. VSS. A/P: 1) Hypotension- weaned off pressors; maintain MAP>65; continue to monitor. 2) Spesis secondary to UTI from Proteus- sensitive to rocephine; continue rocephin. 3) Newly dx'd a-fib- rate controlled with cardizem. Family deciding regarding anticoagulation.
--- NOTE | 2018-11-18 06:48 | PDOC.CPN ---
- Subjective Date: 11/18/18 Time: 13:47 Interval history: doing well. off pressors. rate cotnrolled - Objective Allergies/Adverse Reactions: Allergies Allergy/AdvReac Type Severity Reaction Status Date / Time iodine Allergy Verified 11/15/18 16:47 Visit Medications: Current Medications Acetaminophen (Tylenol) 650 mg PO Q6H PRN PRN Reason: Pain Aspirin (Ecotrin) 81 mg PO DAILY [facility] Last Admin: 11/17/18 09:09 Dose: 81 mg Bupropion HCl (Wellbutrin Sr) 150 mg PO BID [facility] Last Admin: 11/17/18 20:06 Dose: 150 mg Diltiazem HCl (Cardizem) 30 mg PO 0200,0800,1400,2000 [facility] Last Admin: 11/18/18 02:17 Dose: 30 mg Docusate Sodium (Colace) 100 mg PO HS [facility] Last Admin: 11/17/18 20:04 Dose: Not Given Enoxaparin Sodium (Lovenox) 40 mg SC 0900 [facility] Last Admin: 11/17/18 09:09 Dose: 40 mg Fluticasone Propionate (Flonase Nasal [place]) 0 gm NASAL QAM [facility] Last Admin: 11/17/18 09:10 Dose: 2 spr Guaifenesin (Organ-I Nr) 400 mg PO Q12H PRN PRN Reason: Congestion Ceftriaxone Sodium 1 gm/ (Sodium Chloride) 100 mls @ 200 mls/hr IVPB Q24HR [facility] Last Admin: 11/17/18 15:30 Dose: 100 mls Norepinephrine Bitartrate 8 mg (/ Dextrose/Water) 250 mls @ 0 mls/hr IVPB INF PRN; Protocol PRN Reason: TO MAINTAIN MAP > 65 Last Admin: 11/16/18 23:55 Dose: 250 mls Vancomycin HCl 1.25 gm/ Sodium (Chloride) 250 mls @ 166.67 mls/hr IVPB Q24HR [facility] Last Admin: 11/17/18 14:00 Dose: 250 mls Loratadine (Claritin) 10 mg PO DAILY [facility] Last Admin: 11/17/18 09:09 Dose: 10 mg Miscellaneous Medication (Pharmacy To Dose) 1 each IVPB PRN PRN PRN Reason: Pharmacy to dose Multivitamins (Theragran) 1 tab PO DAILY [facility] Last Admin: 10/06/19 09:09 Dose: 1 tab Naproxen (Naprosyn) 500 mg PO Q12H PRN PRN Reason: Pain Potassium Chloride (Klor-Con 10) 10 meq PO DAILY [facility] Last Admin: 11/17/18 09:09 Dose: 10 meq Sertraline HCl (Zoloft) 25 mg PO DAILY [facility] Last Admin: 11/17/18 09:09 Dose: 25 mg Sodium Chloride (Sodium Chloride) 1 gm PO DAILY [facility] Last Admin: 11/17/18 09:09 Dose: 1 gm Sodium Chloride (Flush - Normal Saline) 10 ml IVF PRN PRN PRN Reason: Saline Flush Tamsulosin HCl (Flomax) 0.4 mg PO HS [facility] Last Admin: 11/17/18 20:06 Dose: 0.4 mg Vital Signs & Weight: Vital Signs Temp Pulse Ox 11/18/18 04:00 98.8 F 11/18/18 00:00 98.5 F 11/17/18 20:00 98.3 F 11/17/18 19:26 98 Admit Weight 183 lb 12.8 oz Weight 183 lb 12.8 oz - Physical Exam HEENT: normocephaly Neck: no masses, no bruit Cardiac: no murmur, irregularly regular Lungs: no wheeze, rales, rhonchi Neuro: other (confused) Abdomen: soft Extremities: no clubbing, no edema - Labs Result Diagrams: 11/18/18 04:20 11/18/18 04:20 Troponin/CKMB CK-MB (CK-2) 5.0 ng/mL (0-6.6) 11/15/18 10:37 Troponin I 0.064 ng/mL (< 0.028) H 11/15/18 16:36 - Assessment/Plan Assessment/Plan: afib Sepsis Hypotension HR controlled on cardizem short acting On levophed for pressure support 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 Please reconsult if other issues arise
[2018-11-18] MEDS: Enoxaparin Sodium 40 MG/0.4 ML SYRINGE SC SCH (09:16)
[2018-11-18] MEDS: Multivit, Therapeutic 1 TAB PO SCH (09:16)
[2018-11-18] MEDS: Fluticasone Propionate Nasal Spray 16 gm Bottle NASAL SCH (09:16)
[2018-11-18] MEDS: Loratadine 10 MG TAB PO SCH (09:17)
[2018-11-18] MEDS: Aspirin 81 mg Enteric Coated Tablet PO SCH (09:17)
[2018-11-18] MEDS: Potassium Chloride 10 MEQ TAB PO SCH (09:18)
[2018-11-18] MEDS: Sodium Chloride 1 GM TAB PO SCH (09:19)
[2018-11-18] MEDS: Bupropion 150 MG SR TAB PO SCH ×2 (09:28→21:54)
--- NOTE | 2018-11-18 10:10 | CON ---
DATE OF CONSULTATION: HISTORY OF PRESENT ILLNESS: Mr. Al is an unfortunate 88-year-old male with advanced dementia. He was admitted yesterday after falling out of a chair. He is in atrial fibrillation. The code was called this morning for blood pressure in the 60s with rapid atrial fibrillation. He was transferred to critical care unit. Echocardiogram and Cardiac consultation were recommended. He is unable to give any type of accurate history. PAST MEDICAL HISTORY: Remarkable for: 1. Hypertension. 2. Diabetes. 3. Dementia that is advanced. 4. History of extreme deconditioning. 5. BPH. 6. History of decubitus ulcer. 7. History of cerebrovascular accident in the past. 8. History of squamous cell skin cancer. SOCIAL HISTORY: He is nonsmoker and nondrinker. His nutrition is liquid. PHYSICAL EXAMINATION: VITAL SIGNS: Blood pressure is 123/98 now. He responded to a volume infusion and an albumin infusion this morning. He has been loaded with amiodarone. HEENT: Sclerae anicteric. His extraocular movements appear intact. NECK: Supple without lymphadenopathy. LUNGS: Remarkable for coarse equal breath sounds. HEART: Irregularly irregular. ABDOMEN: Soft and nontender without guarding. EXTREMITIES: Without asymmetry. NEURO: Grossly nonfocal. DIAGNOSTIC STUDIES: Chest radiograph just shows atelectasis. IMPRESSION: 1. Rapid atrial fibrillation, likely with underlying chronic atrial fibrillation. 2. Advanced dementia with deconditioning. Aggressive care is not appropriate in this setting. Rate control is reasonable as well as volume resuscitation. Without a doubt since he lives in a full-time care environment with dementia, he is intravascularly dry. I would not be surprised if his hemoglobin drops further from 11.8 g with his volume resuscitation. Clinically, I doubt he is septic. Does have active urine sediment and a gram-negative in his urine, but his blood cultures are negative and I suspect this is prostatitis or cystitis. He can be transferred out of the Critical Care Unit in the morning if he remains stable. Job ID: [id number]
[2018-11-18 12:31] LABS: Vancomycin, Trough 8.4 ug/mL
[2018-11-18] MEDS ORDERED: Potassium Chloride 20 MEQ TAB PO SCH (13:00)
--- NOTE | 2018-11-18 13:11 | PRG ---
DATE OF SERVICE: 11/18/2018 SERVICE: Pulmonary Medicine. INTERVAL HISTORY: The patient is doing really well from respiratory standpoint. He is breathing comfortably. He remains on room air. He has no complaints of shortness of breath or chest discomfort. He is weaned off his Levophed early this morning. His heart rate is under excellent control and he has returned to sinus rhythm. Otherwise, there were no significant events overnight. PHYSICAL EXAMINATION: VITAL SIGNS: Afebrile, pulse 72, blood pressure 90/63, respirations 15, and saturation 95%, currently on room air. GENERAL: The patient is awake and alert, in no apparent distress. LUNGS: Decent air entry. Minimal dependent crackles are noted. HEART: Normal rate and regular. ABDOMEN: Soft, nontender, and nondistended. Bowel sounds are positive. MUSCULOSKELETAL: No cyanosis or clubbing. No pitting in the bilateral lower extremities. NEUROLOGIC: Grossly nonfocal. LABORATORY DATA: WBC 11.9, hemoglobin 9.5 and gently downtrending, and platelets 184,000. Potassium 3.6. Basic metabolic profile and liver function studies are otherwise unremarkable. Procalcitonin 4.46 and gently downtrending. Urine culture is growing Proteus mirabilis, which has sensitivities to the third generation cephalosporins. ASSESSMENT: 1. Septic shock, improving. 2. Urinary tract infection secondary to Proteus mirabilis. 3. Dementia, advanced. 4. Atrial fibrillation with rapid ventricular response, returned to sinus rhythm. 5. Dementia, advanced. 6. Dehydration, on presentation. DISCUSSION AND PLAN: The patient is doing fine from a respiratory standpoint. At this point, he has been off Levophed for over 12 hours. It would be reasonable to transition him to the floor. I will repeat hemoglobin tomorrow morning and replace potassium. If he leaves the ICU, he will have no further requirements for Pulmonary or Critical Care opinion, and I will sign off. Antibiotics can be transitioned over to an oral medication. Job ID: [id number]
[2018-11-18] MEDS: cefTRIAXone\\ROCEPHIN 1 GM in Sodium Chloride 0.9% 100 ML IVPB SCH (13:57)
--- NOTE | 2018-11-18 14:23 | PDOC.PALCO ---
Palliative Care Consult - Consult Details Requesting Physician: Dr Burnett Reason for Consult: goals of care, assistance with communication prognosis/ disease Family Members Present: Patient daughters Rocio and Muna - Pertinent HPI Patient is a resident at [facility], he fell out of his chair and was sent to the emergency room for further evaluation. At [facility] he was identified to have A fib with RVR and possible UTI. Admitted to IMCU for further management and evaluation. - Pertinent PMH Hypertension, DM II, Dementia, squamous cell carcinoma, increase in weakness and muscle atrophy, Insomnia, CVA, - Social History Smoking Status: Never smoker Smoking: no tobacco exposure Alcohol Use: none Drug Use History: none Living Situation: custodial resident - Medications MAR Reviewed: Yes - Allergies Allergies/Adverse Reactions: Allergies Allergy/AdvReac Type Severity Reaction Status Date / Time iodine Allergy Verified 11/15/18 16:47 - Subjective Awake, pleasantly confused, eating ice cream. ROS: 10 point review negative, confused - Objective Vital Signs: Vital Signs - Most Recent Temp Pulse Resp BP Pulse Ox 98.3 F 28 L 128 H 68/46 L 97 11/18/18 11:00 11/17/18 12:41 11/16/18 03:05 11/16/18 06:39 11/18/18 07:41 Palliative Performance Scale: 30 - Physical Exam Constitutional: confusion HEENT: moist MMs, sclera anicteric, EOMI Respiratory: no wheezing, unlabored breathing Cardiovascular: irregular Gastrointestinal: soft, non-tender, positive bowel sounds Neurological: moves all 4 limbs Psychiatric: normal mood Deviation from normal: confused, oreinted to self, knows he is in the hospital, but not location Skin: normal turgor, cap refill <2 seconds - Problem List (1) Palliative care encounter Code(s): Z51.5 - ENCOUNTER FOR PALLIATIVE CARE Current Visit: Yes Status: Acute (2) Dementia Code(s): F03.90 - UNSPECIFIED DEMENTIA WITHOUT BEHAVIORAL DISTURBANCE Current Visit: Yes Status: Acute (3) Physical deconditioning Code(s): R53.81 - OTHER MALAISE Current Visit: Yes Status: Acute (4) Atrial fibrillation with RVR Code(s): I48.91 - UNSPECIFIED ATRIAL FIBRILLATION Current Visit: Yes Status : Acute (5) UTI (urinary tract infection) Current Visit: Yes Status: Acute - Plan/Recommendations Plan: Daughters gave brief history and shared that their father has declined over the past 3 years. senior living resident and poor appitite with continued weight loss. Patient with dysphagia, however family seeks quality and assumes risk for regular diet. In the conversation the daughters expressed desire for their dad not to suffer and want comfort. Introduced Hospice and resources they offer. Alexandr Alonzo RNdevelopment editor also present for conversation. *Family desires quality of life for their father *Continue to reside in custodial environment but possible transition to different location *May consider Hospice services to promote comfort and mitigate symptoms of disease processes verses treatment. Palliative Care will continue to follow and support family and patient [80] minutes spent on this encounter with >50% of the time in counseling and coordination of care. Thank you for this very appropriate consult.
--- NOTE | 2018-11-18 16:05 | EKG ---
Test Reason : Blood Pressure : / mmHG Vent. Rate : 138 BPM Atrial Rate : 174 BPM P-R Int : 000 ms QRS Dur : 088 ms QT Int : 322 ms P-R-T Axes : 000 -52 024 degrees QTc Int : 487 ms Atrial fibrillation with rapid ventricular response Left axis deviation Abnormal ECG When compared with ECG of 15-NOV-2018 10:28, (Unconfirmed) QRS axis Shifted left Confirmed by NICHOLAS LOPEZ, SAntonieta ([id number]) on 11/18/2018 4:05:19 PM Referred By: YOANDY Confirmed By:DR. Eloy PETERSON MD
[2018-11-18] MEDS: Docusate 100 MG CAP PO SCH (21:53)
[2018-11-18] MEDS: Tamsulosin HCl 0.4 MG CAP PO SCH (21:53)
[2018-11-19 05:18] LABS: Hemoglobin 10.1 g/dL (14.0-18.0)
--- NOTE | 2018-11-19 05:34 | PDOC.FM ---
- Subjective Subjective: Nursing reports pt required canela catheter overnight due to retention. After this he did well. This AM he has no complaints. - Objective MAR Reviewed: Yes Vital Signs & Weight: Vital Signs (12 hours) Pulse BP Pulse Ox 11/18/18 21:53 92 127/82 11/18/18 19:00 98 Weight Admit Weight 83.37 kg Weight 83.37 kg Most Recent Monitor Data Heart Rate from ECG 89 NIBP 140/85 NIBP BP-Mean 103 Respiration from ECG 26 SpO2 98 I&O: 11/17/18 11/18/18 11/19/18 06:59 06:59 06:59 Intake Total 2671 1279.8 680 Output Total 1960 1460 945 Balance 711 -180.2 -265 Result Diagrams: 11/19/18 04:39 11/18/18 04:20 Phys Exam - Physical Examination Constitutional: NAD HEENT: moist MMs Neck: no JVD Respiratory: no wheezing, clear to auscultation bilateral Cardiovascular: irregular Rate controlled, 2/6 systolic murmur Gastrointestinal: soft, no distention, positive bowel sounds Mild tenderness diffusely Musculoskeletal: no edema, pulses present Neurological: moves all 4 limbs Deviation from normal: Oriented to person Skin: cap refill <2 seconds Dx/Plan (1) Atrial fibrillation with RVR Code(s): I48.91 - UNSPECIFIED ATRIAL FIBRILLATION Status: Acute (2) BPH (benign prostatic hyperplasia) Code(s): N40.0 - BENIGN PROSTATIC HYPERPLASIA WITHOUT LOWER URINRY TRACT SYMP Status: Acute (3) CAD (coronary artery disease) Code(s): I25.10 - ATHSCL HEART DISEASE OF [place] CORONARY ARTERY W/O ANG PCTRS Status: Acute (4) Shock Code(s): R57.9 - SHOCK, UNSPECIFIED Status: Acute - Plan Plan: This is an 88 yo male with a 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, HTN, HLD, BPH, CAD New onset Afib with RVR, now rate controlled -Rate controlled overnight 80-110 -Continue PO diltiazem -CHADVASC score: 4, continue aspirin -On DVT prophylactic lovenox -BNP 515 (baseline below 100) -Cardiology signed off Shock, likely cardiogenic and septic causes -Off levophed, maintaining BP overnight -Currently on rocephin (11/15) and vancomycin (11/16-), will likely de-escalate with current culture results -Proteus UTI, sensitive to rocephin -WBC and procalcitonin trending down -transfer to tele Proteus UTI -Continue rocephin (11/15) GAYE on CKD 2, resolved Anemia -9.5, possibly dilutional -Would consider stool occult blood if continues to drop. -Will monitor HTN -Hold home meds depression -Continue sertraline and bupropion BPH -Continue tamsulosin -Has canela currently, plan for outpt urology Addendum - Attending - Attending Attestation Date/Time: 11/19/18 1355 I personally evaluated the patient and discussed the management with Dr. Chávez I agree with the History, Examination, Assessment and Plan documented above with any addition or exceptions noted below - Patient denies complaints. Afebrile VSS A/P: 1) Sepsis secondary to Proteus UTI - sensitivities available; will de-escalate antibiotics. 2) Afib with RVR- now rate controlled on diltiazem. Continue current meds. 3) GAYE- resolved. 4) Urinary retention- continue flomax; will need bladder training. Anticipate d/c home in next 1-2 days.
[2018-11-19] MEDS: Enoxaparin Sodium 40 MG/0.4 ML SYRINGE SC SCH (09:44)
[2018-11-19] MEDS: Fluticasone Propionate Nasal Spray 16 gm Bottle NASAL SCH (09:44)
[2018-11-19] MEDS: Multivit, Therapeutic 1 TAB PO SCH (09:45)
[2018-11-19] MEDS: Potassium Chloride 10 MEQ TAB PO SCH (09:45)
[2018-11-19] MEDS: Aspirin 81 mg Enteric Coated Tablet PO SCH (09:45)
[2018-11-19] MEDS: Sodium Chloride 1 GM TAB PO SCH (09:45)
[2018-11-19] MEDS: Loratadine 10 MG TAB PO SCH (09:45)
[2018-11-19] MEDS: Bupropion 150 MG SR TAB PO SCH ×2 (09:48→20:41)
[2018-11-19] MEDS: cefTRIAXone\\ROCEPHIN 1 GM in Sodium Chloride 0.9% 100 ML IVPB SCH (15:41)
[2018-11-19] MEDS: Tamsulosin HCl 0.4 MG CAP PO SCH (20:41)
[2018-11-19] MEDS: Docusate 100 MG CAP PO SCH (20:41)
--- NOTE | 2018-11-20 05:34 | PDOC.FM ---
- Subjective Subjective: NAEO. No complaints this morning. - Objective MAR Reviewed: Yes Vital Signs & Weight: Vital Signs (12 hours) Temp Pulse Resp BP BP Pulse Ox 11/20/18 04:00 97.7 F 78 20 112/75 95 11/20/18 02:11 96 11/20/18 00:00 78 107/63 11/19/18 20:41 78 118/70 11/19/18 19:45 98.3 F 78 16 118/70 96 Weight Admit Weight 83.37 kg Weight 83.37 kg Most Recent Monitor Data Heart Rate from ECG 89 NIBP 108/68 NIBP BP-Mean 81 Respiration from ECG 23 SpO2 99 I&O: 11/18/18 11/19/18 11/20/18 06:59 06:59 06:59 Intake Total 1279.8 680 480 Output Total 1460 1175 810 Balance -180.2 -495 -330 Result Diagrams: 11/19/18 04:39 11/18/18 04:20 Phys Exam - Physical Examination Constitutional: NAD Dry mmm Neck: no JVD Respiratory: no wheezing Coarse breath sounds Cardiovascular: RRR 2/6 systolic murmur Gastrointestinal: soft, non-tender, no distention, positive bowel sounds Musculoskeletal: no edema, pulses present Ankle tenderness Neurological: non-focal, moves all 4 limbs Deviation from normal: oriented to self only Skin: normal turgor Dx/Plan (1) Atrial fibrillation with RVR Code(s): I48.91 - UNSPECIFIED ATRIAL FIBRILLATION Status: Acute (2) BPH (benign prostatic hyperplasia) Code(s): N40.0 - BENIGN PROSTATIC HYPERPLASIA WITHOUT LOWER URINRY TRACT SYMP Status: Acute (3) CAD (coronary artery disease) Code(s): I25.10 - ATHSCL HEART DISEASE OF [place] CORONARY ARTERY W/O ANG PCTRS Status: Acute (4) Shock Code(s): R57.9 - SHOCK, UNSPECIFIED Status: Acute - Plan Plan: This is an 88 yo male with a 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, HTN, HLD, BPH, CAD New onset Afib with RVR, now rate controlled -Rate controlled overnight 80-110 -Continue PO diltiazem -CHADVASC score: 4, continue aspirin -On DVT prophylactic lovenox -Cardiology signed off Shock, likely cardiogenic and septic causes -Off levophed, maintaining BP overnight -Currently on rocephin (11/15) and vancomycin (11/16-), will likely de-escalate with current culture results -Proteus UTI, sensitive to rocephin, stopping rocephin today Proteus UTI -Continue rocephin (11/15) GAYE on CKD 2, resolved Anemia -9.5, possibly dilutional -Would consider stool occult blood if continues to drop. -Will monitor HTN -Hold home meds depression -Continue sertraline and bupropion BPH -Continue tamsulosin -Has canlea currently, plan for outpt urology Will likely send [facility] to the [facility] today. Addendum - Attending - Attending Attestation Date/Time: 11/20/18 [id number] I personally evaluated the patient and discussed the management with Dr. Chávez I agree with the History, Examination, Assessment and Plan documented above with any addition or exceptions noted below - Patinet without complaints. Afebrile VSS. A/P: 1) Spesis secondary to Proteus UTI- resolved; plan to d/c back to [facility] today. 2) Urinary retention- continue canela and plan for bladder training at [facility].
[2018-11-20] MEDS: Fluticasone Propionate Nasal Spray 16 gm Bottle NASAL SCH (09:47)
[2018-11-20] MEDS: Multivit, Therapeutic 1 TAB PO SCH (09:47)
[2018-11-20] MEDS: Aspirin 81 mg Enteric Coated Tablet PO SCH (09:48)
[2018-11-20] MEDS: Potassium Chloride 10 MEQ TAB PO SCH (09:48)
[2018-11-20] MEDS: Sodium Chloride 1 GM TAB PO SCH (09:48)
[2018-11-20] MEDS: Loratadine 10 MG TAB PO SCH (09:48)
[2018-11-20] MEDS: Bupropion 150 MG SR TAB PO SCH (09:48)
[2018-11-20] MEDS: Enoxaparin Sodium 40 MG/0.4 ML SYRINGE SC SCH (09:48)
--- NOTE | 2018-11-20 10:04 | PRG ---
DATE OF SERVICE: 11/19/2018 SERVICE: Pulmonary Medicine. INTERVAL HISTORY: The patient is doing great from respiratory standpoint. His blood pressure has firmed up very nicely. He has been off his Levophed for a while. He denies any current chest discomfort or shortness of breath. He is working with Physical Therapy. Otherwise, there has been no interval change to his condition. PHYSICAL EXAMINATION: VITAL SIGNS: Afebrile. Pulse 78, blood pressure 118/70, respirations 16, and saturation 96%, currently on room air. GENERAL: The patient is awake and alert, in no apparent distress. LUNGS: Decent air entry. No prolonged expiratory phase or dependent crackles are appreciated. HEART: Normal rate and regular. ABDOMEN: Soft, nontender, and nondistended. Bowel sounds are positive. MUSCULOSKELETAL: No cyanosis or clubbing. No pitting in the bilateral lower extremities. NEUROLOGIC: Grossly nonfocal. LABORATORY DATA: Hemoglobin 10.1 and stable. ASSESSMENT: 1. Septic shock, resolved. 2. Urinary tract infection secondary to Proteus mirabilis. 3. Dementia, advanced. 4. Atrial fibrillation, with rapid ventricular rate, currently rate controlled. 5. Dehydration, on presentation. DISCUSSION AND PLAN: The patient is doing great from respiratory standpoint. His septic shock is resolved. At this point, he is stable for transition out of the ICU to the telemetry unit. When he leaves the ICU, he will have no further requirements for inpatient Pulmonary Critical Care opinion, and I will sign off. Please call with additional questions or concerns through time. Job ID: [id number]
[2018-11-20 12:01] VITALS: BP 98/71; TEMP 97.9
--- NOTE | 2018-11-21 08:03 | PQF ---
[facility] Team Physician Crystal Reports Winform MINDY Parry KATHERINE MD [id number] [facility] [id number] CLINICAL DOCUMENTATION CLARIFICATION FORM: POST DISCHARGE Addendum to original discharge summary date: ____ Late entry note date: __ DATE: 11/21/2018 ATTN: SOCORRO PITT MD Please exercise your independent, professional judgment in responding to the clarification form. Clinical indicators are provided on the bottom of this form for your review Diagnosis: ____SEPSIS___ Present on Admission (POA): [ X] Yes [ ] No [ ] Unable to determine Coding guidelines require hospitals to identify whether a diagnosis was present on admission (POA) or not. To accurately assign the appropriate POA indicator, this information must be clearly documented within the medical record. CLINICAL INDICATORS - SIGNS / SYMPTOMS / LABS HR 120-130's - Documented in H&P on 11/15 by Gato Hatfield UA: leak est 500> 50 WBC> 50 RBC, Bacteria - Documented in H&P on 11/15 by Gato Hatfield WBC level 15.5 on 11/15 , 24.0 on 11/16 - Documented in Laboratory report Sepsis - Documented in Consultation on 11/16 by Ananya Vines RR 128 on 11/16 - Documented in Vital Signs BP 66/38 on 11/16 - Documented in Vital Signs RISK FACTORS: UTI - Documented in H&P on 11/15 by Gato Hatfield Cardiogenic shock - Documetned in Family medicine PNs on 11/17 by Golden Burnett TREATMENT: Started Rocephin 1 g q24h - Documented in H&P on 11/15 by Gato Hatfield Vancomycin (This form is maintained as a part of the permanent medical record) 2014 [employer] All Rights Reserved [employer] Team Physician [employer] Reports Winform [email or web address] [not provided] [email or web address]
== END 2018-11-20 13:30 | DRG 871 ==
LOC: ERS 10:17 → 2NO 13:44 → CCU 11-16 06:52 → 2NO 11-19 14:13
PROVIDERS: ADMIT Family Medicine; ATTEND Family Medicine
PROC: 06HY33Z Insertion of Infusion Device into Lower Vein, Percutaneous Approach (ICD-10-PCS; principal; 2018-11-16)
DX: A41.9 Sepsis, unspecified organism (principal); R65.21 Severe sepsis with septic shock; R57.0 Cardiogenic shock; N39.0 Urinary tract infection, site not specified; I48.91 Unspecified atrial fibrillation; E78.5 Hyperlipidemia, unspecified; Z66 Do not resuscitate; Z51.5 Encounter for palliative care; E11.22 Type 2 diabetes mellitus with diabetic chronic kidney disease; F03.90 Unspecified dementia, unspecified severity, without behavioral disturbance, psychotic disturbance, mood disturbance, and anxiety; N40.0 Benign prostatic hyperplasia without lower urinary tract symptoms; S00.01XA Abrasion of scalp, initial encounter; W07.XXXA Fall from chair, initial encounter; F32.9 Major depressive disorder, single episode, unspecified; R53.81 Other malaise; B96.4 Proteus (mirabilis) (morganii) as the cause of diseases classified elsewhere; E86.0 Dehydration; Z79.82 Long term (current) use of aspirin; Z79.899 Other long term (current) drug therapy; Z91.041 Radiographic dye allergy status; Z86.73 Personal history of transient ischemic attack (TIA), and cerebral infarction without residual deficits; Z85.828 Personal history of other malignant neoplasm of skin
CPT/HCPCS: 36415; 36416; 51701; 70450; 71045; 72125; 76700; 80053; 80202; 81003; 81015; 82553; 83036; 83735; 83880; 84100; 84145; 84443; 84484; 85014; 85018; 85025; 87040; 87077; 87086; 87186; 93005; 93010; 96374; J0282; J0696; J1160; J1650; J1940; J3370; J3480; J3490; J7050; J7070; P9047